=== PATIENT | female | born 2000 | race Caucasian/White ===

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

== ENCOUNTER 2022-01-31 01:14 | Emergency (ER) | payer MEDICAID ==
[2022-01-31 01:27] VITALS: BP 143/89; PULSE 76
[2022-02-02 07:17] LABS: CHLAMYDIA TRACHOMATIS, NAA Negative (Negative); NEISSERIA GONORRHOEAE, NAA Negative (Negative)
== END 2022-01-31 02:27 | disposition home or self-care (01) ==
LOC: JP.ED 01:14
DX: N73.9 Female pelvic inflammatory disease, unspecified (principal); Z72.0 Tobacco use
CPT/HCPCS: 87210; 87491; 87591; 99282; 99284